=== PATIENT | female | born 1960 | race Caucasian/White ===

== ENCOUNTER 2016-06-11 05:35 | Emergency (ER) | payer SELFPAY ==
[2016-06-11 05:52] VITALS: RESP 16; O2SAT 98
[2016-06-11] MEDS ORDERED: Sodium Chloride 0.9% 1,000 ML IV SCH (06:15)
--- NOTE | 2016-06-11 06:23 | ED PDOC ---
HPI: Abdomen Time Seen by Provider: 06/11/16 05:59 Chief Complaint (Nursing): GI Problem Chief Complaint (Provider): nausea/vomiting/diarrhea History Per: Patient, Family History/Exam Limitations: no limitations Onset/Duration Of Symptoms: Days Outside of [place] travel?: No Current Symptoms Are (Timing): Still Present Severity: Mild Pain Scale Rating Of: 2 Location Of Pain/Discomfort: Epigastric, LLQ Quality Of Discomfort: Aching Associated Symptoms: Chills, Nausea, Vomiting, Diarrhea Exacerbating Factors: None Alleviating Factors: None Last Bowel Movement: Today Additional Complaint(s): 56 y/o female with an unremarkable PMHx presents to the ED complaining of nausea , vomiting, and diarrhea. Pt reports nausea started randomly Sunday and was associated with 5-6 episodes of nonbloody, nonbilious vomiting. Pt reports vomiting subsided Sunday evening but still has been feeling nauseous with chills and abdominal pain. Reports diarrhea started today at 4am, with 5-7 episodes of watery nonbloody, nonmucoid diarrhea per hour. Pt has been able to tolerate PO fluid intake and food without vomiting. Denies recent travel, alcohol consumption, or sick contacts. Pt has no other complaints. Denies headaches, changes in vision, CP/SOB, urinary symptoms, numbness/tingling. Past Medical History Reviewed: Vital Signs Vital Signs: Last Vital Signs Temp 98.7 F 06/11/16 05:47 Pulse 86 06/11/16 05:47 Resp 16 06/11/16 05:47 BP 116/63 06/11/16 05:47 Pulse Ox 98 06/11/16 06:43 - Medical History PMH: No Chronic Diseases - Surgical History Surgical History: No Surg Hx - Family History Family History: States: No Known Family Hx - Living Arrangements Living Arrangements: With Family - Social History Current smoker - smoking cessation education provided: No Ex-Smoker (has not smoked in the last 12 months): No Alcohol: None Drugs: Denies - Allergies Allergies/Adverse Reactions: Allergies Allergy/AdvReac Type Severity Reaction Status Date / Time No Known Allergies Allergy Unverified 06/10/14 16:42 Review of Systems ROS Statement: Except As Marked, All Systems Reviewed And Found Negative Physical Exam - Reviewed Vital Signs Reviewed: Yes - Physical Exam Appears: Positive for: Non-toxic, No Acute Distress Head Exam: Positive for: ATRAUMATIC, NORMOCEPHALIC Skin: Positive for: Normal Color, Warm, Dry. Negative for: Diaphoresis, Pallor , Jaundice Eye Exam: Positive for: EOMI, PERRL. Negative for: Conjunctival injection, Scleral icterus Neck: Positive for: Painless ROM, Supple Cardiovascular/Chest: Positive for: Regular Rate, Rhythm. Negative for: Edema, Gallop, JVD, Murmur, Tachycardia, Friction Rub Respiratory: Positive for: Normal Breath Sounds. Negative for: Decreased Breath Sounds, Accessory Muscle Use, Crackles, Rales, Rhonchi, Wheezing Pulses-Dorsalis Pedis (L): 2+ Pulses-Dorsalis Pedis (R): 2+ Pulses-Radial (L): 2+ Pulses-Radial (R): 2+ Gastrointestinal/Abdominal: Positive for: Bowel Sounds (+ bowel sounds), Soft, Tenderness (minor tenderness to palpation at epigastric region and lower quadrents. ). Negative for: Organomegaly, Mass, Distended, Guarding, Rebound Back: Positive for: Normal Inspection. Negative for: L CVA Tenderness, R CVA Tenderness, Vertebral Tenderness Extremity: Negative for: Tenderness, Pedal Edema Lymphatic: Negative for: Adenopathy Neurologic/Psych: Positive for: Alert, wood mechanist II-XII, Oriented - ECG O2 Sat by Pulse Oximetry: 98 - Progress ED Course And Treament: Labs ordered: Cbc with diff: pending CMP: pending Lipase: pending UA: pending Udip: neg Upreg: neg Meds: Zofran 4mg IVP Pepcid 20mg IVP 1L NS @ 125ml/hr Disposition - Clinical Impression Clinical Impression: Gastroenteritis - Patient ED Disposition Is Patient to be Admitted: Transfer of Care - Disposition Disposition: Transfer of Care Disposition Time: 06:45 Condition: STABLE Patient Signed Over To: Susie Rodriguez
[2016-06-11 06:41] LABS: BASO % 0.2 % (0.0-2.0); EOS # 0.1 K/uL (0.0-0.7); EOS % 1.4 % (0.0-4.0); HEMATOCRIT 39.2 % (34.0-47.0); LYMPH # 0.7 K/uL (1.0-4.3); LYMPH % 9.3 % (20.0-40.0); MEAN CELL VOLUME 91.7 fl (81.0-99.0); MEAN CORPUSCULAR HGB CONC 32.7 g/dL (33.0-37.0); MEAN PLATELET VOLUME 9.7 fl (7.2-11.7); MONO # 0.4 K/uL (0.0-0.8); NEUT # 5.9 K/uL (1.8-7.0); NEUT % 83.1 % (50.0-75.0); PLATELET COUNT 209 K/uL (130-400); RED CELL DISTRIBUTION WIDTH 13.9 % (11.5-14.5); WHITE BLOOD COUNT 7.1 K/uL (4.8-10.8)
[2016-06-11 06:51] LABS: ALB/GLOB RATIO 1.1 (1.0-2.1); ALKALINE PHOSPHATASE 61 U/L (38-126); ALT/SGPT 42 U/L (9-52); AST/SGOT 24 U/L (14-36); BILIRUBIN,TOTAL 0.3 mg/dl (0.2-1.3); BLOOD UREA NITROGEN 9 mg/dl (7-17); CALCIUM 8.3 mg/dL (8.4-10.2); CARBON DIOXIDE 25 mmol/L (22-30); CHLORIDE 107 mmol/L (98-107); GFR AFRICAN-AMERICAN > 60; GLUCOSE,RANDOM 101 mg/dL (65-105); LIPASE 55 U/L (23-300); POTASSIUM 3.3 MMOL/L (3.6-5.0); SODIUM 144 mmol/l (132-148); TOTAL PROTEIN 6.2 G/DL (6.3-8.2)
[2016-06-11 06:52] LABS: RBC URINE 3 /hpf (0-3); URINE BACTERIA RARE (<OCC); URINE BILIRUBIN NEGATIVE (NEGATIVE); URINE BLOOD MODERATE (NEGATIVE); URINE COLOR YELLOW (YELLOW); URINE GLUCOSE (UA) NEG (Normal); URINE KETONE NEGATIVE (NEGATIVE); URINE LEUKOCYTE ESTERASE NEG Leu/uL (Negative); URINE PROTEIN NEGATIVE (NEGATIVE); URINE UROBILINOGEN 0.2-1.0 mg/dL (0.2-1.0); WBC URINE 1 /hpf (0-5)
--- NOTE | 2016-06-11 07:06 | ED PDOC ---
- Laboratory Results Result Diagrams: 06/11/16 06:39 06/11/16 06:39 - ECG O2 Sat by Pulse Oximetry: 98 (RA) Pulse Ox Interpretation: Normal Medical Decision Making Medical Decision Makin signed over to me by Bertha Turner MD pending labs, reassessment. 0841: on reassessment patient is feeling better, no longer vomiting. Will PO challenge. 0915: patient tolerated PO clears. Will d/c on Zofran and Pepcid Disposition Doctor Will See Patient In The: Office Counseled Patient/Family Regarding: Diagnosis, Need For Followup, Rx Given - Clinical Impression Clinical Impression: Gastroenteritis - POA Present On Arrival: None - Disposition Referrals: Shaik Montejo MD [Medical Doctor] - Disposition: Routine/Home Disposition Time: 09:27 Condition: STABLE Prescriptions: Famotidine [Pepcid] 20 mg PO BID #28 tab Ondansetron [Zofran] 4 mg PO Q8H #9 tab Instructions: Gastroenteritis (ED) Print Language: BULGARIAN Additional Comments - Additional Comments Additional Comments: Scribe Attestation Documented by Darryn Dean, acting as a scribe for Susie Rodriguez MD. Provider Scribe Attestation All medical record entries made by the Scribe were at my direction and personally dictated by me. I have reviewed the chart and agree that the record accurately reflects my personal performance of the history, physical exam, medical decision making, and the department course for this patient. I have also personally directed, reviewed, and agree with the discharge instructions and disposition.
[2016-06-11 07:40] LABS: EOSINOPHIL 1 % (0-7); NEUTROPHIL 86 % (42-75); TOTAL CELLS COUNTED 100
[2016-06-11 07:41] LABS: LARGE PLATELETS PRESENT
[2016-06-11 09:52] VITALS: BP 120/70; PULSE 74; TEMP 98
== END 2016-06-11 09:52 | disposition home or self-care (01) ==
LOC: H.ER 05:35
DX: K52.9 Noninfective gastroenteritis and colitis, unspecified (principal)
CPT/HCPCS: 80053; 81003; 81025; 83690; 85025; 96374; 96375; 99284; J2405; J7040